=== PATIENT | male | born 1965 | race African-American/Black ===

== ENCOUNTER 2021-10-18 11:46 | Emergency (ER) | payer MEDICAID, OTHER ==
[2021-10-18] MEDS ORDERED: SODIUM CHLORIDE 0.9% 1,000 ML IV ONE (13:15)
[2021-10-18 13:28] LABS: Basophils # (auto) 0.1 10 ^3/uL (0-0.2); Basophils % (auto) 0.7 % (0.0-2.0); Eosinophils # (auto) 0.1 10 ^3/uL (0-0.8); Hemoglobin 10.9 g/dL (13.5-17.5); Lymphocytes # (auto) 1.1 10 ^3/uL (0.4-5.4); Lymphocytes % (auto) 10.5 % (10.0-50.0); Mean Corpuscular Hemoglobin 30.2 pg (28.0-32.0); Mean Corpuscular Hgb Conc. 31.1 g/dL (32.0-36.0); Mean Corpuscular Volume 97.2 fL (80.0-100.0); Monocytes # (auto) 0.8 10 ^3/uL (0-1.3); Monocytes % (auto) 7.5 % (0.0-12.0); Neutrophils # (auto) 8.3 10 ^3/uL (1.6-8.6); Neutrophils % (auto) 80.3 % (37.0-80.0); Red Cell Distribution Width 18.7 % (11.8-14.3); White Blood Cell 10.3 10^3/uL (4.4-10.8)
[2021-10-18 13:45] LABS: Albumin 3.2 g/dL (3.4-5.0); Calcium 8.8 mg/dL (8.5-10.1); INR 1.01 (0.9-1.15); Magnesium 2.5 mg/dL (1.6-2.6); Partial Thromboplastin Time 29.6 sec (24.6-33.4)
[2021-10-18 13:49] LABS: BUN/Creatinine Ratio 3.8; Bilirubin, Total 0.6 mg/dL (0.2-1.0); Total Protein 7.8 g/dL (6.4-8.2)
[2021-10-18 13:52] LABS: Potassium 6.1 mmol/L (3.5-5.1)
[2021-10-18] MEDS ORDERED: ALBUTEROL SULF 2.5 MG/0.5ML(0.5%) NEB SOLN NEB ONE (17:15)
[2021-10-18] MEDS ORDERED: CALCIUM GLUC 1,000mg/50ml-NS 50 ML IV ONE (17:15)
[2021-10-18] MEDS ORDERED: SODIUM BICARBONATE 8.4 % INJ 50ML VIAL IV ONE (17:15)
[2021-10-18] MEDS ORDERED: FUROSEMIDE 40 MG/4 ML VIAL IV ONE (17:15)
[2021-10-18 20:43] LABS: BUN/Creatinine Ratio 4.3; Calcium 9.7 mg/dL (8.5-10.1); Potassium 5.4 mmol/L (3.5-5.1)
[2021-10-18 20:46] LABS: Bilirubin, Total 0.4 mg/dL (0.2-1.0); Total Protein 6.6 g/dL (6.4-8.2)
[2021-10-18 23:13] VITALS: BP 117/55
== END 2021-10-18 23:37 | disposition short-term general hospital (02) ==
LOC: EDBD 11:46 → ER 11:46
DX: R07.89 Other chest pain (principal); E11.22 Type 2 diabetes mellitus with diabetic chronic kidney disease; I13.2 Hypertensive heart and chronic kidney disease with heart failure and with stage 5 chronic kidney disease, or end stage renal disease; I50.9 Heart failure, unspecified; N18.6 End stage renal disease; J90 Pleural effusion, not elsewhere classified; I24.9 Acute ischemic heart disease, unspecified; E87.5 Hyperkalemia; E44.1 Mild protein-calorie malnutrition; I69.354 Hemiplegia and hemiparesis following cerebral infarction affecting left non-dominant side; Z68.1 Body mass index [BMI] 19.9 or less, adult; Z99.2 Dependence on renal dialysis; Z20.822 Contact with and (suspected) exposure to COVID-19
CPT/HCPCS: 36415; 71045; 80053; 83735; 83880; 84443; 84484; 85025; 85610; 85730; 87426; 94644; 96361; 96365; 96375; 99285; J0610; J1940; J7030; 93005

== ENCOUNTER 2022-03-05 19:53 | Emergency (ER) | payer MEDICAID ==
[~2022-03-05] VITALS: Ht 180.3 cm; Wt 84.1 kg
[2022-03-05 20:05] VITALS: BP 184/87
== END 2022-03-05 20:28 | disposition left against medical advice (07) ==
LOC: EDBD 19:53 → ER 19:54
DX: M79.672 Pain in left foot (principal); M79.671 Pain in right foot; Z53.21 Procedure and treatment not carried out due to patient leaving prior to being seen by health care provider

== ENCOUNTER 2022-03-26 09:25 | Emergency (ER) | payer MEDICAID ==
[~2022-03-26] VITALS: Ht 180.3 cm; Wt 80.0 kg
[2022-03-26 09:52] VITALS: BP 140/80
[2022-03-26] MEDS ORDERED: HYDROcodone-ACET 5/325MG TAB PO ONE (10:45)
== END 2022-03-26 10:49 | disposition home or self-care (01) ==
LOC: EDBD 09:25 → ER 09:25
DX: S90.422A Blister (nonthermal), left great toe, initial encounter (principal); M19.072 Primary osteoarthritis, left ankle and foot; Z88.6 Allergy status to analgesic agent; X58.XXXA Exposure to other specified factors, initial encounter; Y93.89 Activity, other specified; Y92.89 Other specified places as the place of occurrence of the external cause; Y99.8 Other external cause status
CPT/HCPCS: 73630

== ENCOUNTER 2022-04-07 06:46 | Emergency (ER) | payer MEDICAID ==
[~2022-04-07] VITALS: Ht 180.3 cm; Wt 81.8 kg
[2022-04-07] MEDS ORDERED: SODIUM CHLORIDE 0.9% 1,000 ML IV ONE (07:45)
[2022-04-07 08:04] LABS: Basophils # (auto) 0.1 10 ^3/uL (0-0.2); Basophils % (auto) 0.6 % (0.0-2.0); Eosinophils # (auto) 0.1 10 ^3/uL (0-0.8); Eosinophils % (auto) 0.4 % (0.0-7.0); Hematocrit 29.8 % (41.0-53.0); Hemoglobin 9.5 g/dL (13.5-17.5); Lymphocytes # (auto) 0.8 10 ^3/uL (0.4-5.4); Mean Corpuscular Volume 93.8 fL (80.0-100.0); Monocytes # (auto) 1.4 10 ^3/uL (0-1.3); Monocytes % (auto) 9.3 % (0.0-12.0); Neutrophils # (auto) 13.1 10 ^3/uL (1.6-8.6); Neutrophils % (auto) 84.7 % (37.0-80.0); Red Blood Cells 3.18 10^6/uL (4.5-5.90); Red Cell Distribution Width 18.8 % (11.8-14.3); White Blood Cell 15.5 10^3/uL (4.4-10.8)
[2022-04-07 08:39] LABS: Potassium 4.4 mmol/L (3.5-5.1)
[2022-04-07 08:42] LABS: Albumin 2.8 g/dL (3.4-5.0); BUN/Creatinine Ratio 6.8; Magnesium 2.7 mg/dL (1.6-2.6)
[2022-04-07 08:46] LABS: Bilirubin, Total 0.5 mg/dL (0.2-1.0); Total Protein 6.6 g/dL (6.4-8.2)
[2022-04-07 22:36] VITALS: BP 130/57
== END 2022-04-08 00:01 | disposition short-term general hospital (02) ==
LOC: EDBD 06:46 → ER 06:46
DX: E11.22 Type 2 diabetes mellitus with diabetic chronic kidney disease (principal); I13.2 Hypertensive heart and chronic kidney disease with heart failure and with stage 5 chronic kidney disease, or end stage renal disease; I50.9 Heart failure, unspecified; N18.6 End stage renal disease; I69.354 Hemiplegia and hemiparesis following cerebral infarction affecting left non-dominant side; S90.422A Blister (nonthermal), left great toe, initial encounter; R53.83 Other fatigue; E44.0 Moderate protein-calorie malnutrition; Z20.822 Contact with and (suspected) exposure to COVID-19; Z68.25 Body mass index [BMI] 25.0-25.9, adult; Z99.2 Dependence on renal dialysis
CPT/HCPCS: 36415; 71045; 73700; 80053; 82962; 83605; 83735; 84484; 85025; 87426; 93005; 96360; 96361; 99285; J7030

== ENCOUNTER 2022-10-21 11:52 | Inpatient (IN) | payer MEDICAID, OTHER ==
[~2022-10-21] VITALS: Ht 182.9 cm; Wt 68.0 kg
[2022-10-21 13:26] LABS: Basophils # (auto) 0 10 ^3/uL (0-0.2); Basophils % (auto) 0.2 % (0.0-2.0); Eosinophils # (auto) 0 10 ^3/uL (0-0.8); Hematocrit 41.5 % (41.0-53.0); Hemoglobin 13.4 g/dL (13.5-17.5); Lymphocytes # (auto) 0.9 10 ^3/uL (0.4-5.4); Lymphocytes % (auto) 4.3 % (10.0-50.0); Mean Corpuscular Hemoglobin 31.3 pg (28.0-32.0); Mean Corpuscular Hgb Conc. 32.3 g/dL (32.0-36.0); Monocytes # (auto) 1.7 10 ^3/uL (0-1.3); Monocytes % (auto) 8.5 % (0.0-12.0); Neutrophils # (auto) 17.4 10 ^3/uL (1.6-8.6); Nucleated Red Blood Cells % 0.1 %; Red Blood Cells 4.28 10^6/uL (4.5-5.90); Red Cell Distribution Width 17.8 % (11.8-14.3)
[2022-10-21 13:46] LABS: Chloride 97 mmol/L (98-107); Potassium 3.1 mmol/L (3.5-5.1); Sodium 135 mmol/L (136-145)
[2022-10-21 13:53] LABS: INR 1.09 (0.9-1.15); Partial Thromboplastin Time 35.1 SEC (24.5-34.5)
[2022-10-21 14:03] LABS: Alanine Aminotransferase 18 U/L (16-61); Albumin 3.2 g/dL (3.4-5.0); Alkaline Phosphatase 170 U/L (45-117); Anion Gap 12 (5-15); Aspartate Aminotransferase 23 U/L (15-37); BUN/Creatinine Ratio 7.5 (10.0-20.0); Bilirubin, Total 0.6 mg/dL (0.2-1.0); Blood Urea Nitrogen 38 mg/dL (7-18); Calcium 9.2 mg/dL (8.5-10.1); Carbon Dioxide 26 mmol/L (21-32); GFR African American 15 mL/min; GFR Non-African American 13 mL/min; Glucose 172 mg/dL (74-106); Magnesium 2.3 mg/dL (1.6-2.6)
[2022-10-21 14:05] LABS: Blood Alcohol < 3.0 mg/dL (<10)
[2022-10-21] MEDS ORDERED: PIPERACILLIN-TAZOB 3.375GM 100 ML IV ONE (15:45)
[2022-10-21] MEDS ORDERED: VANCOMYCIN 1GM/250ML 250 ML IV ONE (15:45)
[2022-10-21] MEDS ORDERED: MORPHINE SULFATE INJ 2 MG/ml SYRG IV PRN (16:30)
[2022-10-21] MEDS ORDERED: HYDROcodone-ACET 5/325MG TAB PO PRN (16:30)
[2022-10-21] MEDS ORDERED: NITROGLYCERIN 0.4 MG SL TAB SL PRN (16:30)
[2022-10-21] MEDS ORDERED: DIPH50CA31 PO (16:40)
[2022-10-21] MEDS ORDERED: PANT40T PO (16:40)
[2022-10-21] MEDS ORDERED: CLON0.1D7 TOP (16:40)
[2022-10-21] MEDS ORDERED: GAB100C PO (16:40)
[2022-10-21] MEDS ORDERED: HYDR-4072 PO (16:40)
[2022-10-21] MEDS ORDERED: FLUO0.013 TOP (16:40)
[2022-10-21] MEDS ORDERED: FERR1TAB17 PO (16:40)
[2022-10-21] MEDS ORDERED: ISOS1TAB28 PO (16:40)
[2022-10-21] MEDS ORDERED: AMLO1TAB22 PO (16:40)
[2022-10-21] MEDS ORDERED: MORP1TAB12 PO (16:40)
[2022-10-21] MEDS ORDERED: ATOR10TA52 PO (16:40)
[2022-10-21] MEDS ORDERED: KAY60LQ PO (16:40)
[2022-10-21] MEDS ORDERED: NALO4SPR3 NAS (16:40)
[2022-10-21] MEDS ORDERED: CINA30TA14 PO (16:40)
[2022-10-21] MEDS ORDERED: VANCOMYCIN PER PHARMACY 0 MG IV SCH (16:45)
[2022-10-21] MEDS ORDERED: POTASSIUM EFFERVESENT TAB 25 MEQ PO ONE (16:45)
[2022-10-21] MEDS ORDERED: DEXTROSE (50%) 50ML SYRG IV PRN (16:45)
[2022-10-21] MEDS ORDERED: hydrALAZINE HCL 20 MG/ML VL IV PRN (17:15)
[2022-10-21] MEDS: ACCU-CHEK COMFORT CURVE STRIP VI SCH ×2 (18:24→22:00)
[2022-10-21] MEDS: InsuLIN REG 1unit/0.01ml Soln (100units/ml) SC SCH ×2 (18:41→22:00)
[2022-10-21 20:30] VITALS: PULSE 87; RESP 21; O2SAT 98
[2022-10-21] MEDS: ASCORBIC ACID 500 MG TAB PO SCH (22:09)
[2022-10-21] MEDS: HEPARIN SODIUM (PORCINE) 5000 UNITS/ML 1ML VIAL SC SCH (22:10)
[2022-10-21] MEDS: amLODIPine BESYLATE 5 MG TAB PO SCH (22:10)
[2022-10-21] MEDS: PANTOPRAZOLE 40 MG TAB PO SCH (22:11)
[2022-10-21] MEDS: ONDANSETRON HCL 4 MG/2 ML VIAL IV PRN (23:51)
[2022-10-21] MEDS: HYDROmorphone HCL 2 MG/ML VL/or syr IV PRN (23:52)
[2022-10-22] MEDS ORDERED: VANCOMYCIN PER PHARMACY 0 MG IV SCH (04:15)
[2022-10-22] MEDS ORDERED: PIPERACILLIN-TAZOB 3.375GM 100 ML IV SCH (06:00)
[2022-10-22 06:33] LABS: Albumin 2.6 g/dL (3.4-5.0); Calcium 8.6 mg/dL (8.5-10.1); Potassium 3.1 mmol/L (3.5-5.1)
[2022-10-22 06:37] LABS: Bilirubin, Total 0.5 mg/dL (0.2-1.0); Total Protein 7.3 g/dL (6.4-8.2)
[2022-10-22 06:39] LABS: Basophils # (auto) 0 10 ^3/uL (0-0.2); Basophils % (auto) 0.2 % (0.0-2.0); Eosinophils # (auto) 0 10 ^3/uL (0-0.8); Eosinophils % (auto) 0.1 % (0.0-7.0); Hematocrit 34.3 % (41.0-53.0); Lymphocytes # (auto) 1.3 10 ^3/uL (0.4-5.4); Lymphocytes % (auto) 9.5 % (10.0-50.0); Mean Corpuscular Hemoglobin 31.1 pg (28.0-32.0); Mean Corpuscular Hgb Conc. 32.1 g/dL (32.0-36.0); Monocytes % (auto) 14.2 % (0.0-12.0); Neutrophils # (auto) 10.7 10 ^3/uL (1.6-8.6); Red Blood Cells 3.53 10^6/uL (4.5-5.90); Red Cell Distribution Width 17.7 % (11.8-14.3)
[2022-10-22] MEDS: InsuLIN REG 1unit/0.01ml Soln (100units/ml) SC SCH ×4 (06:39→22:00)
[2022-10-22] MEDS: ACCU-CHEK COMFORT CURVE STRIP VI SCH ×4 (06:39→22:24)
[2022-10-22] MEDS: HYDROmorphone HCL 2 MG/ML VL/or syr IV PRN ×2 (07:47→20:33)
[2022-10-22] MEDS: ONDANSETRON HCL 4 MG/2 ML VIAL IV PRN ×2 (07:48→13:57)
[2022-10-22 08:18] VITALS: PULSE 82; RESP 15; O2SAT 99
[2022-10-22] MEDS: PIPERACILLIN-TAZOB 3.375GM 100 ML IV SCH ×2 (09:20→20:32)
[2022-10-22] MEDS ORDERED: MULTIPLE VITAMIN TAB PO SCH (10:00)
[2022-10-22] MEDS ORDERED: ZINC SULFATE 220mg CAP or TAB PO SCH (10:00)
[2022-10-22] MEDS ORDERED: CINACALCET HYDROCHLORIDE 30 MG TAB PO SCH (10:00)
[2022-10-22] MEDS ORDERED: ISOSORBIDE MONONITRATE ER 60 MG TAB PO SCH (10:00)
[2022-10-22] MEDS: PANTOPRAZOLE 40 MG TAB PO SCH ×2 (12:07→22:31)
[2022-10-22] MEDS: amLODIPine BESYLATE 5 MG TAB PO SCH ×2 (12:07→22:31)
[2022-10-22] MEDS: ASCORBIC ACID 500 MG TAB PO SCH ×2 (12:08→22:31)
[2022-10-22] MEDS: HEPARIN SODIUM (PORCINE) 5000 UNITS/ML 1ML VIAL SC SCH ×2 (12:10→22:33)
[2022-10-22 19:40] VITALS: PULSE 63; RESP 10; O2SAT 100
[2022-10-23] MEDS: HYDROmorphone HCL 2 MG/ML VL/or syr IV PRN (03:12)
[2022-10-23 04:25] VITALS: BP 135/55; PULSE 74; RESP 19; TEMP 97.7; O2SAT 95
== END 2022-10-23 04:50 | disposition short-term general hospital (02) | DRG 720 ==
LOC: ER 11:52 → EDBD 11:52 → TELE 16:36
PROVIDERS: ADMIT Nurse Practitioner Acute Care; ATTEND Nurse Practitioner Acute Care
DX: A41.9 Sepsis, unspecified organism (principal); I21.A1 Myocardial infarction type 2; I13.2 Hypertensive heart and chronic kidney disease with heart failure and with stage 5 chronic kidney disease, or end stage renal disease; E43 Unspecified severe protein-calorie malnutrition; N18.6 End stage renal disease; D63.8 Anemia in other chronic diseases classified elsewhere; I48.91 Unspecified atrial fibrillation; Z20.822 Contact with and (suspected) exposure to COVID-19; E11.22 Type 2 diabetes mellitus with diabetic chronic kidney disease; L03.116 Cellulitis of left lower limb; E11.69 Type 2 diabetes mellitus with other specified complication; E87.6 Hypokalemia; M86.8X7 Other osteomyelitis, ankle and foot; F03.90 Unspecified dementia, unspecified severity, without behavioral disturbance, psychotic disturbance, mood disturbance, and anxiety; J44.9 Chronic obstructive pulmonary disease, unspecified; I50.9 Heart failure, unspecified; M10.9 Gout, unspecified; M19.90 Unspecified osteoarthritis, unspecified site; Z86.73 Personal history of transient ischemic attack (TIA), and cerebral infarction without residual deficits; Z99.2 Dependence on renal dialysis; Z88.6 Allergy status to analgesic agent; Z99.81 Dependence on supplemental oxygen; Z88.8 Allergy status to other drugs, medicaments and biological substances; Z89.422 Acquired absence of other left toe(s); Z89.421 Acquired absence of other right toe(s); Z68.20 Body mass index [BMI] 20.0-20.9, adult
CPT/HCPCS: 36415; 70450; 71045; 73700; 80053; 80202; 80320; 82962; 83036; 83605; 83735; 84484; 85025; 85610; 85730; 86141; 87040; 87077; 87186; 87426; 93005; G0378; J1815; J2405; J2543

== ENCOUNTER 2022-11-13 09:32 | Emergency (ER) | payer MEDICAID ==
[~2022-11-13] VITALS: Ht 182.9 cm; Wt 59.0 kg
[~2022-11-13 09:32] MED LIST: AMLO1TAB22 PO; ATOR10TA52 PO; CINA30TA14 PO; CLON0.1D7 TOP; DIPH50CA31 PO; FERR1TAB17 PO; FLUO0.013 TOP; GAB100C PO; HYDR-4072 PO; ISOS1TAB28 PO; KAY60LQ PO; MORP1TAB12 PO; NALO4SPR3 NAS; PANT40T PO
[2022-11-13 10:44] LABS: Basophils # (auto) 0.1 10 ^3/uL (0-0.2); Basophils % (auto) 0.4 % (0.0-2.0); Eosinophils # (auto) 0.1 10 ^3/uL (0-0.8); Eosinophils % (auto) 0.4 % (0.0-7.0); Hematocrit 37.5 % (41.0-53.0); Hemoglobin 11.8 g/dL (13.5-17.5); Lymphocytes # (auto) 0.9 10 ^3/uL (0.4-5.4); Lymphocytes % (auto) 4.6 % (10.0-50.0); Mean Corpuscular Hemoglobin 30.2 pg (28.0-32.0); Mean Corpuscular Hgb Conc. 31.4 g/dL (32.0-36.0); Mean Corpuscular Volume 96.1 fL (80.0-100.0); Monocytes # (auto) 1.4 10 ^3/uL (0-1.3); Monocytes % (auto) 7.1 % (0.0-12.0); Neutrophils # (auto) 17.5 10 ^3/uL (1.6-8.6); Neutrophils % (auto) 87.5 % (37.0-80.0); Red Cell Distribution Width 17.7 % (11.8-14.3)
[2022-11-13 10:50] VITALS: PULSE 122; RESP 25; O2SAT 98
[2022-11-13 11:00] LABS: Alanine Aminotransferase 17 U/L (7-40); Albumin 3.8 g/dL (3.2-4.8); Alkaline Phosphatase 175 U/L (46-116); Anion Gap 14.6 (5-15); Aspartate Aminotransferase 19 U/L (13-40); BUN/Creatinine Ratio 6.3 (10.0-20.0); Blood Alcohol < 3.0 mg/dL (<10); Blood Urea Nitrogen 44 mg/dL (9-23); Carbon Dioxide 21.4 mmol/L (20-30); Chloride 103 mmol/L (98-107); Glucose 85 mg/dL (74-106); Magnesium 1.7 mg/dL (1.6-2.6); Potassium 3.9 mmol/L (3.5-5.1); Sodium 139 mmol/L (136-145)
[2022-11-13 11:01] LABS: Bilirubin, Total 0.5 mg/dL (0.2-1.0); Total Protein 7.4 g/dL (5.7-8.2)
[2022-11-13 11:14] LABS: INR 1.09 (0.9-1.15); Partial Thromboplastin Time 34.2 SEC (24.5-34.5); Prothrombin Time 11.4 sec (9.3-11.8)
[2022-11-13] MEDS ORDERED: PIPERACILLIN-TAZO 4.5GM 100 ML IV ONE (11:45)
[2022-11-13] MEDS ORDERED: VANCOMYCIN 1GM/250ML 250 ML IV ONE (12:30)
[2022-11-13] MEDS ORDERED: ACETAMINOPHEN 325 MG TAB PO ONE (13:15)
[2022-11-13] MEDS ORDERED: SODIUM CHLORIDE 0.9% 1,000 ML IV ONE (13:15)
[2022-11-13 14:51] LABS: COVID19 ANTIGEN SOFIA FIA NEGATIVE (NEGATIVE)
[2022-11-13 16:42] VITALS: BP 124/57; PULSE 108; RESP 17; TEMP 98.7; O2SAT 98
== END 2022-11-13 17:06 | disposition short-term general hospital (02) ==
LOC: ER 09:32 → EDBD 09:32 → ER 17:06
DX: M86.8X7 Other osteomyelitis, ankle and foot (principal); D72.829 Elevated white blood cell count, unspecified; A41.9 Sepsis, unspecified organism; R50.9 Fever, unspecified; R62.7 Adult failure to thrive; Z68.1 Body mass index [BMI] 19.9 or less, adult; I13.2 Hypertensive heart and chronic kidney disease with heart failure and with stage 5 chronic kidney disease, or end stage renal disease; E11.22 Type 2 diabetes mellitus with diabetic chronic kidney disease; N18.6 End stage renal disease; I50.9 Heart failure, unspecified; Z99.2 Dependence on renal dialysis; J44.9 Chronic obstructive pulmonary disease, unspecified; M10.9 Gout, unspecified; I48.91 Unspecified atrial fibrillation; Z86.73 Personal history of transient ischemic attack (TIA), and cerebral infarction without residual deficits; Z79.899 Other long term (current) drug therapy; Z88.8 Allergy status to other drugs, medicaments and biological substances; Z20.822 Contact with and (suspected) exposure to COVID-19
CPT/HCPCS: 36415; 70450; 71045; 73630; 80053; 80320; 83605; 83735; 84484; 85025; 85379; 85610; 85730; 87040; 87426; 93005; 96361; 96365; 96367; 99291; J2543; J3370; J7030